=== PATIENT | female | born 1975 | race Caucasian/White ===

== ENCOUNTER 2023-12-31 19:18 | Observation (INO) ==
[2023-12-31 20:16] LABS: ABS Eosinophils 0.3 10^3/uL (0.0-0.5); ABS Monocytes 0.6 10^3/uL (0.0-0.9); ABS Nucleated RBC 0.01 10^3/ul; Eosinophil % 2.7 %; Hematocrit 43.3 % (35-45); Hemoglobin 14.4 g/dL (11.5-14.3); Lymphocyte % 36.8 %; Mean Corpuscular Hemoglobin 29.8 pg (27-33); Mean Corpuscular Hgb Conc 33.3 g/dL (31-36); Mean Corpuscular Volume 89.3 fL (80-97); Mean Platelet Volume 8.3 fL (7.5-11.2); Nucleated Red Blood Cells % 0.1 %/100WBC (0.0-0.8); Platelet Count 307 10^3/uL (150-450); Red Blood Count 4.85 10^6/uL (3.63-4.92); Red Cell Distribution Width 13.3 % (12-17)
[2023-12-31] MEDS: Iodixanol (CONTRAST) 320 MG/ML 100 ML SDV IV ONE (20:22)
[2023-12-31 20:26] LABS: Activated Partial Thrombo Time 34.1 seconds (26.0-38.0); INR 0.96 (0.83-1.13)
[2023-12-31 20:56] LABS: Urine Appearance Clear; Urine Bilirubin Negative (Negative); Urine Blood Negative (Negative); Urine Color Colorless; Urine Glucose Negative (Negative); Urine Ketones Negative (Negative); Urine Nitrite Negative (Negative); Urine Protein Negative (Negative); Urine Specific Gravity 1.024 (1.002-1.030); Urine Urobilinogen Negative (Negative)
[2023-12-31 20:59] LABS: Albumin 4.6 g/dL (3.2-5.2); Albumin/Globulin Ratio 1.6 (1-3); Calcium 9.7 mg/dL (8.6-10.3); Creatinine, Serum 0.8 mg/dL (0.51-0.95); Globulin 2.9 g/dL (2-4); Indirect Bilirubin 0.3 mg/dL (0.3-1.0); Potassium 3.8 mmol/L (3.5-5.0); Total Bilirubin 0.3 mg/dL (0.2-1.0); Total Protein 7.5 g/dL (6.4-8.9); eGFR CKD-EPI 90.8 (>60)
[2023-12-31] MEDS: Metoclopramide 5 MG/ML VIAL (10 mg) IV ONE (21:49)
[2023-12-31] MEDS: Lactated Ringers 1000 ml BAG 1,000 ML IV ONE (21:50)
[2024-01-01 06:19] LABS: ABS Eosinophils 0.2 10^3/uL (0.0-0.5); ABS Monocytes 0.5 10^3/uL (0.0-0.9); ABS Neutrophils 4.3 10^3/uL (1.5-7.6); Eosinophil % 3.5 %; Hematocrit 38.7 % (35-45); Hemoglobin 12.9 g/dL (11.5-14.3); Lymphocyte % 28.6 %; Mean Corpuscular Hemoglobin 29.5 pg (27-33); Mean Corpuscular Hgb Conc 33.4 g/dL (31-36); Mean Corpuscular Volume 88.3 fL (80-97); Mean Platelet Volume 8.3 fL (7.5-11.2); Platelet Count 246 10^3/uL (150-450); Red Blood Count 4.38 10^6/uL (3.63-4.92); Red Cell Distribution Width 13.1 % (12-17); White Blood Count 7.1 10^3/uL (3.8-11.8)
[2024-01-01 07:23] LABS: Calcium 8.7 mg/dL (8.6-10.3); Creatinine, Serum 0.67 mg/dL (0.51-0.95); Magnesium 1.9 mg/dL (1.9-2.7); Potassium 3.8 mmol/L (3.5-5.0); eGFR CKD-EPI 107.7 (>60)
[2024-01-01 14:35] VITALS: BP 145/98
== END 2024-01-01 14:43 | disposition home or self-care (01) ==
LOC: ED 19:18 → EDHOLD 19:18
PROVIDERS: ADMIT Student in an Organized Health Care Education/Training Program; ATTEND Hospitalist